=== PATIENT | female | born 1985 | race American Indian/Alaskan Native ===

== ENCOUNTER 2022-04-18 11:33 | Emergency (ER) | payer OTHER ==
[2022-04-18] MEDS ORDERED: ACETAMINOPHEN 500 MG TAB PO ONE (20:43)
[2022-04-18] MEDS ORDERED: IBUPROFEN 600 MG TAB PO ONE (20:43)
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
[2022-04-18 22:41] VITALS: BP 153/91
== END 2022-04-18 23:38 | disposition home or self-care (01) ==
LOC: ED 11:33
DX: M62.838 Other muscle spasm (principal); M62.830 Muscle spasm of back; V89.2XXA Person injured in unspecified motor-vehicle accident, traffic, initial encounter; Y93.89 Activity, other specified; Y92.89 Other specified places as the place of occurrence of the external cause; Y99.8 Other external cause status
CPT/HCPCS: 70450; 72100; 72125; 99284